=== PATIENT | female | born 1980 | race Caucasian/White ===

== ENCOUNTER 2017-11-22 18:37 | Emergency (ER) | payer OTHER ==
[2017-11-22] MEDS: DIPHTH/TET/ACEL PERTUSS (ADULT) 0.5 ML VIAL IM* (19:24)
== END 2017-11-22 19:49 | disposition home or self-care (01) ==
LOC: FTE 18:37
DX: S61.353A Open bite of left middle finger with damage to nail, initial encounter (principal); S61.355A Open bite of left ring finger with damage to nail, initial encounter; S61.152A Open bite of left thumb with damage to nail, initial encounter; W54.0XXA Bitten by dog, initial encounter; Y92.9 Unspecified place or not applicable; Z23 Encounter for immunization
CPT/HCPCS: 90471; 90715; 99283-25